=== PATIENT | male | born 1975 | race Caucasian/White ===

== ENCOUNTER 2021-09-19 19:04 | Emergency (ER) | payer OTHER ==
[~2021-09-19] VITALS: Ht 177.8 cm; Wt 126.0 kg
[2021-09-19 21:28] LABS: BASOPHILS % 0.4 % (0.0-2.0); EOSINOPHILS % 1.8 % (0.0-5.0); HEMATOCRIT. 49.4 % (42.0-52.0); HEMOGLOBIN. 16.1 g/dL (14.0-18.0); LYMPHOCYTES % 34.6 % (20.0-50.0); MEAN CORPUSCULAR HEMOGLOBIN 29.9 pg (28.0-32.0); MEAN CORPUSCULAR VOLUME 91.7 fL (80.0-94.0); MEAN PLATELET VOLUME 8.4 fl (7.4-10.4); MONOCYTES % 6.4 % (2.0-8.0); NEUTROPHILS % 56.8 % (40.0-76.0); PLATELET 249 x1000/uL (130-400); RED BLOOD CELL COUNT 5.38 mill/uL (4.7-6.1); RED CELL DISTRIBUTION WIDTH 13.6 % (11.6-14.6)
[2021-09-19 21:29] LABS: CHLORIDE 106 mEq/L (98-107)
[2021-09-19] MEDS ORDERED: SODIUM CHLORIDE 0.9% 1,000 ML IV ONE (23:45)
[2021-09-19] MEDS ORDERED: HYDROCODONE/ACETAMINOPHEN 5/325MG TABLET PO ONE (23:45)
[2021-09-20 00:45] LABS: CLARITY URINE CLEAR (CLEAR); COLOR URINE YELLOW (YELLOW); KETONES URINE TRACE (NEGATIVE); LEUKOCYTE ESTERASE URINE NEGATIVE (NEGATIVE); NITRITE URINE NEGATIVE (NEGATIVE); OCCULT BLOOD URINE NEGATIVE (NEGATIVE); PROTEIN URINE NEGATIVE (NEGATIVE); SPECIFIC GRAVITY URINE 1.047 (1.005-1.030); UROBILINOGEN URINE 0.2 E.U./dL (0.2-1.0)
[2021-09-20] MEDS ORDERED: MORPHINE SULFATE 4 MG/ML CPJ (NOT FOR IM USE) IV NR (02:00)
[2021-09-20 02:10] VITALS: BP 138/81
[2021-09-20] MEDS ORDERED: IBUP-2029 MT (04:00)
[2021-09-20] MEDS ORDERED: BACL20TA MT (04:06)
== END 2021-09-20 04:21 | disposition home or self-care (01) ==
LOC: ER 19:04
DX: M54.59 Other low back pain (principal); R31.9 Hematuria, unspecified; K44.9 Diaphragmatic hernia without obstruction or gangrene; N32.89 Other specified disorders of bladder; K76.0 Fatty (change of) liver, not elsewhere classified; E11.9 Type 2 diabetes mellitus without complications; I10 Essential (primary) hypertension
CPT/HCPCS: 36415; 74176; 80053; 81003; 85025; 99284; J2270; J7030